=== PATIENT | female | born 1940 | race Caucasian/White ===

== ENCOUNTER 2017-01-22 18:32 | Emergency (ER) | payer MEDICARE, OTHER, MEDICAID ==
[2017-01-22 19:03] VITALS: BP 142/64
[2017-01-22] MEDS ORDERED: Acetaminophen 325 MG Tab PO ONE (19:26)
--- NOTE | 2017-01-22 19:34 | EDM.PDOC ---
ED HPI GENERAL MEDICAL PROBLEM - General Chief Complaint: Upper Extremity Injury/Pain Time Seen by Provider: 01/22/17 19:20 Source of Information: Reports: Patient History Limitations: Reports: No Limitations - History of Present Illness INITIAL COMMENTS - FREE TEXT/NARRATIVE: This 76 yo female patient reports to the ED with left shoulder pain and immobility. The patient reports she caught her foot on a door and fell against a wall. The patient reports she has not been able to lift up her shoulder. The patient reports the incident happened at about 1700 today. The patient reports no loss of consciousness before, during or after the incident. Onset: Today Onset Date: 01/22/17 Onset Time: 17:00 Duration: Constant Location: Reports: Upper Extremity, Left (left shoulder) Quality: Reports: Ache, Dull Severity: Moderate Improves with: Reports: None Worsens with: Reports: None Context: Reports: Other Associated Symptoms: Reports: No Other Symptoms Left Upper Arm Pain Score (Numeric/FACES): 4 - Related Data Allergies Allergy/AdvReac Type Severity Reaction Status Date / Time torsemide Allergy Intermediate Dizziness Verified 01/22/17 18:54 albuterol sulfate Allergy Swelling Verified 01/22/17 18:54 [From DuoNeb] cephalexin [Cephalexin] Allergy Diarrhea Verified 01/22/17 18:54 hydrochlorothiazide Allergy Dizziness Verified 01/22/17 18:54 ipratropium bromide Allergy Swelling Verified 01/22/17 18:54 [From DuoNeb] Home Meds: Home Meds Levothyroxine [Synthroid] 50 mcg PO DAILY 02/07/16 [History] sitaGLIPtin Phosphate [Januvia] 50 mg PO DAILY 02/07/16 [History] Acetaminophen [Tylenol Extra Strength] 1,000 mg PO Q4H PRN 02/13/16 [History] Aspirin [Halfprin] 81 mg PO DAILY 02/13/16 [History] Carboxymethylcellulose Sodium [Thera Tears] 2 drop EYEBOTH Q4H PRN 02/13/16 [ History] Docusate Sodium [Colace] 100 mg PO DAILY 02/13/16 [History] Lidocaine 2% [Xylocaine 2% Jelly] 1 applic TOP BID PRN 02/13/16 [History] Wheat Dextrin [Benefiber] 1 pack PO DAILY 02/13/16 [History] ALPRAZolam [Xanax] 0.25 mg PO BID PRN #30 tablet 02/16/16 [Rx] Bumetanide [Bumex] 1 mg PO DAILY #30 tablet 02/16/16 [Rx] Polyethylene Glycol 3350 [MiraLAX] 17 gm PO DAILY PRN #30 packet 02/16/16 [Rx] Potassium Chloride [Klor-Con 10] 20 meq PO WITHBREAKFAST #40 tab.er 02/16/16 [Rx ] Past Medical History HEENT History: Reports: Cataract, Impaired Vision Other HEENT History: wears glasses Cardiovascular History: Reports: Hypertension, SOB on Exertion Respiratory History: Reports: Asthma, Sleep Apnea, SOB Gastrointestinal History: Reports: Chronic Constipation, Hemorrhoids [employer] History: Reports: Musculoskeletal History: Reports: Arthritis, Back Pain, Chronic Neurological History: Reports: None Psychiatric History: Reports: None Endocrine/Metabolic History: Reports: Diabetes, Type II, Hypothyroidism, Obesity /BMI 30+ Hematologic History: Reports: None Immunologic History: Reports: None Oncologic (Cancer) History: Reports: Bladder Dermatologic History: Reports: None - Infectious Disease History Infectious Disease History: Reports: Chicken Pox, Measles, Shingles - Past Surgical History Head Surgeries/Procedures: Reports: None HEENT Surgical History: Reports: Cataract Surgery, Other (See Below) Female Surgical History: Reports: Cystectomy, Salpingo-Oophorectomy Oncologic Surgical History: Reports: None Social & Family History - Family History Family Medical History: Noncontributory - Tobacco Use Smoking Status *Q: Never Smoker Years of Tobacco use: 5 Packs/Tins Daily: 0.2 Used Tobacco, but Quit: Yes Month Tobacco Last Used: 46 years ago Second Hand Smoke Exposure: No - Recreational Drug Use Recreational Drug Use: No - Living Situation & Occupation Living situation: Reports: with Family Review of Systems - Review of Systems Review Of Systems: ROS reveals no pertinent complaints other than HPI. ED EXAM, GENERAL - Physical Exam Exam: See Below Exam Limited By: No Limitations General Appearance: Alert, WD/WN, Moderate Distress Eye Exam: Bilateral Eye: EOMI, Normal Inspection, PERRL Ears: Normal External Exam, Normal Canal, Hearing Grossly Normal, Normal TMs Nose: Normal Inspection, Normal Mucosa, No Blood Throat/Mouth: Normal Inspection, Normal Lips, Normal Teeth, Normal Gums, Normal Oropharynx, Normal Voice, No Airway Compromise Head: Atraumatic, Normocephalic Neck: Normal Inspection, Supple, Non-Tender, Full Range of Motion Respiratory/Chest: No Respiratory Distress, Lungs Clear, Normal Breath Sounds, No Accessory Muscle Use, Chest Non-Tender Cardiovascular: Normal Peripheral Pulses, Regular Rate, Rhythm, No Edema, No Gallop, No JVD, No Murmur, No Rub GI/Abdominal: Normal Bowel Sounds, Soft, Non-Tender, No Organomegaly, No Distention, No Abnormal Bruit, No Mass (Female) Exam: Deferred Rectal (Female) Exam: Deferred Back Exam: Normal Inspection, Full Range of Motion, NT Extremities: Normal Inspection, Limited Range of Motion (left shoulder) Neurological: Alert, Oriented, CN II-XII Intact, Normal Cognition, Normal Gait, Normal Reflexes, No Motor/Sensory Deficits Psychiatric: Normal Affect, Normal Mood Skin Exam: Warm, Dry, Intact, Normal Color, No Rash Lymphatic: No Adenopathy Course - Vital Signs Last Recorded V/S: Last Vital Signs Temp 36.3 C 01/22/17 19:02 Pulse 92 01/22/17 19:02 Resp 18 01/22/17 19:02 BP 142/64 H 01/22/17 19:02 Pulse Ox 94 L 01/22/17 19:02 - Orders/Labs/Meds Orders: Active Orders 24 hr Category Date Time Status Acetaminophen [Tylenol] Med 01/22/17 19:26 Once 650 mg PO NOW ONE Departure - Departure Time of Disposition: 19:36 Disposition: Home, Self-Care 01 Condition: Fair Clinical Impression: Left shoulder strain Qualifiers: Encounter type: initial encounter Qualified Code(s): S46.912A - Strain of unspecified muscle, fascia and tendon at shoulder and upper arm level, left arm , initial encounter - Discharge Information Instructions: Shoulder Pain, [id number], How to Use a Sling, [id number] Forms: ED Department Discharge Care Plan Goals: The patient was advised of the examination and x-ray results during the visit. The patient was given an oral dose of Tylenol while in the ED. The patient was placed in a sling for immobilization. The patient was encouraged to follow-up with an insurance sales specialist in the next 1-2 weeks for continued evaluation and management. If the patient has any additional symptoms or concerns, the patient should follow-up with her primary care facility or return to the emergency department. - My Orders Last 24 Hours: My Active Orders 01/22/17 19:26 Acetaminophen [Tylenol] 650 mg PO NOW ONE - Assessment/Plan Last 24 Hours: My Active Orders 01/22/17 19:26 Acetaminophen [Tylenol] 650 mg PO NOW ONE
== END 2017-01-22 19:50 | disposition home or self-care (01) ==
LOC: DL.ED 18:32
DX: S46.912A Strain of unspecified muscle, fascia and tendon at shoulder and upper arm level, left arm, initial encounter (principal); H54.7 Unspecified visual loss; I10 Essential (primary) hypertension; J45.909 Unspecified asthma, uncomplicated; E11.9 Type 2 diabetes mellitus without complications; E66.9 Obesity, unspecified; E03.9 Hypothyroidism, unspecified; Z88.8 Allergy status to other drugs, medicaments and biological substances; Z88.1 Allergy status to other antibiotic agents; Z79.899 Other long term (current) drug therapy; Z79.82 Long term (current) use of aspirin; Z90.49 Acquired absence of other specified parts of digestive tract; Z98.890 Other specified postprocedural states; W23.0XXA Caught, crushed, jammed, or pinched between moving objects, initial encounter
CPT/HCPCS: 73030; 99284; A9270